=== PATIENT | female | born 1950 | race Caucasian/White ===

== ENCOUNTER → 2016-09-13 | Outpatient (CLI) | payer MEDICARE ==
[~2016-09-13] MED LIST: ATACAND32 MG PO; KETOROLAC 10MG10 MG PO; PERCOCET 5/3251 EACH PO
--- NOTE | 2016-09-13 16:19 | RADIOLOGY REPORT PS360 ---
US THYROID HISTORY: THYROMEGLY ORDERING PHYSICIAN: Lily Flores APRN PATIENT AGE: 66 years COMPARISON: None FINDINGS: Right lobe: 3.6 x 1 x 1.2 cm. Homogeneous echogenicity. No right-sided nodules evident Left lobe: 3.5 x 1.2 x 1.4 cm. Homogeneous echogenicity. A 3 mm hypoechoic nodules present in the lower pole on the left to small to categorize. Isthmus: Unremarkable at 3 mm IMPRESSION: 3 mm hypoechoic nodule the left lobe of the thyroid gland otherwise negative thyroid ultrasound.
== END ==
LOC: RAD 09:47
DX: E01.0 Iodine-deficiency related diffuse (endemic) goiter (principal)

== ENCOUNTER → 2017-04-24 | Outpatient (CLI) | payer MEDICARE ==
[~2017-04-24] MED LIST changes: +BACTRIM DS 8001 TA1 PO; +ZYRTEC ALLERGY10 MG PO
--- NOTE | 2017-04-24 16:06 | RADIOLOGY REPORT PS360 ---
BONE DENSITOMETRY(HIP:LT SPINE HISTORY: POSTMENOPAUSAL ORDERING PHYSICIAN: Lily Flores APRN PATIENT AGE: 66 years COMPARISON: None FINDINGS: The BMD measured at the right femoral neck is 0.924 g/cm squared with a T score of -0.8. This is considered normal according to the World Health Organization criteria. Fracture risk is low. Recommend follow up exam April 2019. The T score of the lumbar spine is 3.4 which is normal. IMPRESSION: Normal bone density
--- NOTE | 2017-05-03 06:34 | RADIOLOGY REPORT PS360 ---
DIG MAMM-SCREEN KUS[facility] W/CAD ORDERING PHYSICIAN : Lily Flores APRN PATIENT AGE: 66 years GENDER: Female March COMPARISON: March HISTORY:56-year-old. No new complaints. No hormones. Maternal cousin with breast cancer TECHNIQUE: Std CC & MLO images were obtained. R2 CAD reviewed. FINDINGS: Moderate density breast RIGHT BREAST: No interval change scattered minimal areas of density remaining stable+ LEFT BREAST: A 7 mm mm nodular density at the lateral left breast labeled X has become of denser and more pronounced. Warrant spot views and ultrasound. It may be a small cystic area seems to have come and gone the course of multiple studies with a small density labeled Y at the deep breast is stable. Stable dense intramammary lymph node also observed IMPRESSION: 1. Left breast: increased density & prominence of nodular density at lateral left breast. Warrants spot views and ultrasound. It may be a small cyst as it seems to have waxed and waned over series of mammograms. 2. Right breast with stable no new features BI-RADS CATEGORY: 0_Incomplete: Need additional imaging RECOMMENDED FOLLOWUP: ADD ADDITIONAL IMAGING Right Spot views and right ultrasound left breast (A letter has been sent to the patient regarding results of the study.)
== END ==
LOC: RAD 15:18
DX: Z78.0 Asymptomatic menopausal state (principal); Z13.820 Encounter for screening for osteoporosis; Z12.31 Encounter for screening mammogram for malignant neoplasm of breast
CPT/HCPCS: G0202